=== PATIENT | male | born 1995 | race Caucasian/White ===

== ENCOUNTER 2018-09-28 16:06 | Outpatient (CLI) | payer OTHER ==
--- NOTE | 2018-09-28 16:20 | RAD ---
EXAM: XR Lumbar Spine 2 Or 3 View PROVIDED CLINICAL HISTORY: Disability exam COMPARISON: None FINDINGS: 5 nonrib-bearing lumbar-type vertebral bodies are present. Lumbar alignment appears normal. Vertebral body heights appear preserved. Pedicles appear intact. SI joints appear grossly normal. Postoperative change involving the right pelvis is demonstrated. IMPRESSION: Unremarkable lumbar spine radiographs.
== END 2018-09-28 16:07 | disposition home or self-care (01) ==
LOC: BICRAD 16:06
PROVIDERS: ATTEND Internal Medicine
DX: Z02.71 Encounter for disability determination (principal)
CPT/HCPCS: 72100

== ENCOUNTER 2020-01-07 14:31 | Outpatient (CLI) | payer OTHER ==
--- NOTE | 2020-01-07 15:44 | ULT ---
VENOUS DUPLEX STUDY RIGHT LOWER EXTREMITY: Date: 01/07/2020 INDICATION: BK amputee. Subcutaneous fullness in the popliteal region just above the amputation. Deep veins of right lower extremity evaluated with ultrasound and Doppler with color Doppler and spec tral analysis. FINDINGS: Deep veins show normal blood flow and compression. No deep venous thrombosis. The palpable area of concern in the popliteal region is evaluated with ultrasound. There is no eviden ce of cyst or fluid collection. No evidence of abscess. The subcutaneous tissues in this region are t hickened and hypoechoic, possibly relating to some soft tissue response to the prosthesis. IMPRESSION: 1. No evidence of deep venous thrombosis. 2. Palpable area of concern is assessed with ultrasound. There is no evidence of lymph node, cyst, o r abscess. Subcutaneous thickening is seen in this region with ultrasound. POS: OFF
== END 2020-01-07 14:32 | disposition home or self-care (01) ==
LOC: BICULT 14:31
PROVIDERS: ATTEND Family Medicine
DX: M25.561 Pain in right knee (principal); M25.461 Effusion, right knee; R23.4 Changes in skin texture; Z89.511 Acquired absence of right leg below knee

== ENCOUNTER 2021-01-22 17:52 | Outpatient (CLI) | payer OTHER ==
[2021-01-22 18:19] LABS: #Basophils 0.1 10x3/uL (0.0-0.2); #Eosinphils 0.1 10x3/uL (0.0-0.5); #Monocytes 0.7 10x3/uL (0.0-1.1); #Neutrophils 6.3 10x3/uL (1.5-8.4); %Basophils 0.6 % (0.0-2.0); %Eosinophils 0.6 % (0.0-6.0); %Lymphocytes 26.7 % (18.0-47.0); %Monocytes 6.8 % (0.0-10.0); %Neutrophils 65.1 % (40.0-75.0); Mean Corpuscular HGB CONC 32.2 g/dL (32.0-36.0); Mean Corpuscular Hemoglobin 29.9 pg (27.0-33.0); Mean Corpuscular Volume 92.7 fl (81.2-95.1); Platelet Count 345 10x3/uL (150-450); RBC Distribution Width 13.2 % (11.5-14.5); Red Blood Cell (RBC) Count 5.36 10x6/uL (4.32-5.72); White Blood Cell (WBC) Count 9.7 10x3/uL (3.5-10.5)
[2021-01-22 18:32] LABS: Anion Gap 12 mmol/L (10-20); BUN (Urea Nitrogen) 9 mg/dL (8.9-20.6); Calc. Creatinine Clearance 0 mL/min (70-130); Calcium 9.4 mg/dL (7.8-10.44); Carbon Dioxide 29 mmol/L (22-29); Chloride 106 mmol/L (98-107); Glucose 80 mg/dL (70-105); Potassium 3.5 mmol/L (3.5-5.1); Sodium 143 mmol/L (136-145)
[2021-01-23 11:06] LABS: SARS-CoV-2 PCR by NAA Not Detected (NotDetected)
== END 2021-01-22 17:53 | disposition home or self-care (01) ==
LOC: LABBT 17:52
PROVIDERS: ATTEND Specialist
DX: Z01.812 Encounter for preprocedural laboratory examination (principal); M79.9 Soft tissue disorder, unspecified; Z20.822 Contact with and (suspected) exposure to COVID-19
CPT/HCPCS: 80048; 85025; U0003; U0005